=== PATIENT | female | born 1985 | race African-American/Black ===

== ENCOUNTER 2019-02-23 22:31 | Emergency (ER) | payer MEDICAID ==
[~2019-02-23] VITALS: Ht 170.2 cm; Wt 99.3 kg
[~2019-02-23 22:31] MED LIST: DIURETIC PO
[2019-02-23 22:33] VITALS: BP 156/108
[2019-02-23] MEDS ORDERED: KETOROLAC 30 MG/1 ML IM ONE (23:00)
[2019-02-23] MEDS ORDERED: METHOCARBAMOL 750 MG TABLET PO ONE (23:00)
[2019-02-23] MEDS ORDERED: METHOCARBAMOL 750 MG TABLET ONE (23:06)
[2019-02-23] MEDS ORDERED: KETOROLAC 30 MG/1 ML ONE (23:06)
--- NOTE | 2019-02-23 23:11 | NUR ---
PT HERE FOR BACK PAIN AFTER WORKING TO HARD. PT REPORTS STRAIN LIKE PAIN TO UPPER RIGHT BACK.
[2019-02-24 00:18] LABS: CULTURE INDICATED? NO; HCG UR SG 1.028 (1.003-1.030); MICROSCOPIC NOT IND
--- NOTE | 2019-02-24 00:56 | NUR ---
Patient/Caregiver given discharge instructions and they have confirmed that they understand the instructions. Patient ambulatory with steady gait.
== END 2019-02-24 01:01 | disposition home or self-care (01) ==
LOC: ED 23:12
DX: S39.012A Strain of muscle, fascia and tendon of lower back, initial encounter (principal); I10 Essential (primary) hypertension; X58.XXXA Exposure to other specified factors, initial encounter; Y93.89 Activity, other specified; Y92.89 Other specified places as the place of occurrence of the external cause; Y99.8 Other external cause status
CPT/HCPCS: 81003; 81025; 93005; 96372; 99284; J1885

== ENCOUNTER 2019-03-31 20:57 | Emergency (ER) | payer MEDICAID ==
[~2019-03-31] VITALS: Ht 170.2 cm; Wt 97.0 kg
[2019-03-31 21:15] VITALS: BP 176/113
== END 2019-03-31 22:31 | disposition home or self-care (01) ==
LOC: ED 22:25
DX: K11.21 Acute sialoadenitis (principal); F17.200 Nicotine dependence, unspecified, uncomplicated; I10 Essential (primary) hypertension
CPT/HCPCS: 99283

== ENCOUNTER 2019-04-01 22:21 | Emergency (ER) | payer MEDICAID ==
[~2019-04-01] VITALS: Ht 170.2 cm; Wt 98.0 kg
[2019-04-01 23:46] VITALS: BP 127/81
== END 2019-04-01 23:49 | disposition home or self-care (01) ==
LOC: ED 22:37
DX: K11.21 Acute sialoadenitis (principal); I10 Essential (primary) hypertension; Z72.9 Problem related to lifestyle, unspecified; R51 Headache
CPT/HCPCS: 99282

== ENCOUNTER 2019-07-21 18:43 | Emergency (ER) | payer MEDICAID ==
[~2019-07-21] VITALS: Ht 170.2 cm; Wt 101.3 kg
[2019-07-21 20:24] LABS: MICROSCOPIC NOT IND
[2019-07-21 20:28] LABS: BASOPHILS # (AUTO) 0.01 x10^3/uL (0-0.1); BASOPHILS % (AUTO) 0 % (0-1); EOSINOPHILS # (AUTO) 0.06 x10^3/uL (0-0.4); EOSINOPHILS % (AUTO) 1 % (1-7); LYMPHOCYTES # (AUTO) 1.81 x10^3/uL (1-3.4); LYMPHOCYTES % (AUTO) 35 % (22-44); MD NO; MEAN CORPUSCULAR HEMOGLOBIN 35.5 pg (27.0-34.8); MEAN CORPUSCULAR HGB CONC 33.6 g/dL (32.4-35.8); MEAN CORPUSCULAR VOLUME 105.6 fL (80-100); MEAN PLATELET VOLUME 9.6 fL (7.4-10.4); MONOCYTES % (AUTO) 8 % (2-9); NEUTROPHILS # (AUTO) 2.83 x10^3/uL (1.8-6.8); NEUTROPHILS % (AUTO) 55 % (42-75); PLATELET COUNT 164 x10^3/uL (130-400); RED BLOOD COUNT 4.04 x10^6/uL (3.82-5.3)
[2019-07-21 20:33] LABS: CULTURE INDICATED? NO
[2019-07-21 20:35] LABS: ALANINE AMINOTRANSFERASE 30 U/L (12-78); ALBUMIN 3.4 g/dL (3.4-5.0); ANION GAP 9 mmol/L (5-15); CALCIUM 8.7 mg/dL (8.5-10.1); CHLORIDE 108 mmol/L (98-107)
[2019-07-21 20:40] LABS: ALKALINE PHOSPHATASE 73 U/L (45-117); BILIRUBIN,TOTAL 0.5 mg/dL (0.2-1.0); CREATINE KINASE, TOTAL 118 U/L (26-192); CREATININE 0.86 mg/dL (0.55-1.02); TOTAL PROTEIN 7.8 g/dL (6.4-8.2)
[2019-07-21 20:48] VITALS: BP 148/86
== END 2019-07-21 21:31 | disposition home or self-care (01) ==
LOC: ED 21:25
DX: I10 Essential (primary) hypertension (principal); F17.210 Nicotine dependence, cigarettes, uncomplicated
CPT/HCPCS: 36415; 80053; 81003; 82550; 84703; 85025; 93005; 99284

== ENCOUNTER 2020-03-10 20:49 | Emergency (ER) | payer MEDICAID ==
[~2020-03-10] VITALS: Ht 170.2 cm; Wt 113.1 kg
[2020-03-10 21:47] LABS: HCG UR SG 1.028 (1.003-1.030); MICROSCOPIC NOT IND
--- NOTE | 2020-03-10 22:00 | NUR ---
R[employer] INSULATOR: PT TO RM FROM LOBBY
[2020-03-10 22:26] LABS: BASOPHILS # (AUTO) 0.03 x10^3/uL (0-0.1); BASOPHILS % (AUTO) 1 % (0-1); EOSINOPHILS # (AUTO) 0.07 x10^3/uL (0-0.4); EOSINOPHILS % (AUTO) 1 % (1-7); LYMPHOCYTES # (AUTO) 1.97 x10^3/uL (1-3.4); LYMPHOCYTES % (AUTO) 35 % (22-44); MD NO; MEAN CORPUSCULAR HEMOGLOBIN 35.2 pg (27.0-34.8); MEAN CORPUSCULAR VOLUME 103.6 fL (80-100); MEAN PLATELET VOLUME 9.1 fL (7.4-10.4); MONOCYTES # (AUTO) 0.42 x10^3/uL (0.2-0.8); MONOCYTES % (AUTO) 7 % (2-9); NEUTROPHILS # (AUTO) 3.15 x10^3/uL (1.8-6.8); NEUTROPHILS % (AUTO) 56 % (42-75); PLATELET COUNT 206 x10^3/uL (130-400); RED BLOOD COUNT 3.64 x10^6/uL (3.82-5.3); RED CELL DISTRIBUTION WIDTH 13.2 % (9.6-15.2)
--- NOTE | 2020-03-10 22:32 | NUR ---
PT TAKEN FOR ULTRASOUND.
[2020-03-10 22:37] LABS: ALBUMIN 2.9 g/dL (3.4-5.0); ANION GAP 7 mmol/L (5-15); CALCIUM 8.3 mg/dL (8.5-10.1); CHLORIDE 106 mmol/L (98-107); CREATININE 0.91 mg/dL (0.55-1.02)
[2020-03-10 22:59] VITALS: BP 153/92
== END 2020-03-10 23:36 | disposition home or self-care (01) ==
LOC: ED 21:00
DX: O26.891 Other specified pregnancy related conditions, first trimester (principal); N83.292 Other ovarian cyst, left side; L81.9 Disorder of pigmentation, unspecified; R11.2 Nausea with vomiting, unspecified; R10.2 Pelvic and perineal pain; I10 Essential (primary) hypertension; Z3A.08 8 weeks gestation of pregnancy
CPT/HCPCS: 36415; 76856; 80048; 81003; 81025; 82040; 84702; 85025; 99284

== ENCOUNTER 2020-04-03 18:58 | Emergency (ER) | payer MEDICAID ==
[~2020-04-03] VITALS: Ht 170.2 cm; Wt 113.8 kg
[2020-04-03 19:28] LABS: BASOPHILS # (AUTO) 0.05 x10^3/uL (0-0.1); BASOPHILS % (AUTO) 1 % (0-1); EOSINOPHILS # (AUTO) 0.04 x10^3/uL (0-0.4); EOSINOPHILS % (AUTO) 1 % (1-7); LYMPHOCYTES # (AUTO) 1.64 x10^3/uL (1-3.4); LYMPHOCYTES % (AUTO) 28 % (22-44); MD NO; MEAN CORPUSCULAR HEMOGLOBIN 34.8 pg (27.0-34.8); MEAN CORPUSCULAR HGB CONC 33.7 g/dL (32.4-35.8); MEAN CORPUSCULAR VOLUME 103.2 fL (80-100); MONOCYTES % (AUTO) 5 % (2-9); NEUTROPHILS # (AUTO) 3.78 x10^3/uL (1.8-6.8); NEUTROPHILS % (AUTO) 65 % (42-75); PLATELET COUNT 194 x10^3/uL (130-400); RED BLOOD COUNT 3.66 x10^6/uL (3.82-5.3); RED CELL DISTRIBUTION WIDTH 12.8 % (9.6-15.2)
--- NOTE | 2020-04-03 20:18 | NUR ---
PT BP 183/121 ON EXAM, PT STATES SHE NORMALLY HAS HIGH BP'S BUT HAS NEVER BEEN FORMALLY DX WITH HTN.
[2020-04-03] MEDS ORDERED: LABETALOL 100 MG TABLET PO ONE (21:35)
[2020-04-03 21:49] VITALS: BP 188/112
[2020-04-03 21:56] LABS: MICROSCOPIC INDICATED
[2020-04-03 22:00] LABS: ALBUMIN 3.1 g/dL (3.4-5.0); ANION GAP 7 mmol/L (5-15); CALCIUM 8.5 mg/dL (8.5-10.1); CHLORIDE 109 mmol/L (98-107)
== END 2020-04-03 22:19 | disposition home or self-care (01) ==
LOC: ED 21:09
DX: O26.891 Other specified pregnancy related conditions, first trimester (principal); M54.5 Low back pain; N93.9 Abnormal uterine and vaginal bleeding, unspecified; I10 Essential (primary) hypertension; Z87.891 Personal history of nicotine dependence; Z3A.08 8 weeks gestation of pregnancy
CPT/HCPCS: 36415; 76801; 80048; 81001; 82040; 84702; 85025; 86901; 87086; 99284

== ENCOUNTER 2020-10-15 23:21 | Emergency (ER) | payer MEDICAID ==
[~2020-10-15] VITALS: Ht 170.2 cm; Wt 119.7 kg
[2020-10-15 23:29] VITALS: BP 146/83
--- NOTE | 2020-10-15 23:49 | NUR ---
PT REPORT A LUMP ON THE LEFT SIDE OF HER CHEST PT ALSO C/O A RASH UNDER HER LEFT BREAST THAT ITCHES PT IS 36 WEEKS
== END 2020-10-16 01:04 | disposition home or self-care (01) ==
LOC: ED 10-16 00:45
DX: O26.893 Other specified pregnancy related conditions, third trimester (principal); B35.4 Tinea corporis; N63.0 Unspecified lump in unspecified breast; I10 Essential (primary) hypertension; Z3A.36 36 weeks gestation of pregnancy; Z87.891 Personal history of nicotine dependence
CPT/HCPCS: 99282

== ENCOUNTER 2021-02-27 08:54 | Emergency (ER) | payer MEDICAID ==
[~2021-02-27] VITALS: Ht 170.2 cm; Wt 109.5 kg
--- NOTE | 2021-02-27 09:28 | NUR ---
"SINCE LAST THURSDAY, I'VE BEEN HAVING SORE CHEST, COUGHING, SORE THROAT, MUSCLE ACHES AND IN MY RIGHT EYE THERE'S WHITE PUS COMING OUT OF IT." NO COVID VACCINE. WET COUGH NOTED VSS PLACED IN DROPLET PLUS PRECAUTIONS
--- NOTE | 2021-02-27 10:38 | NUR ---
SWABBED FOR COVID PER GUIDELINES. SAMPLE WAKED TO LAB
[2021-02-27 10:46] VITALS: BP 155/63
== END 2021-02-27 10:48 | disposition home or self-care (01) ==
LOC: ED 10:45
DX: J02.8 Acute pharyngitis due to other specified organisms (principal); R07.81 Pleurodynia; Z20.822 Contact with and (suspected) exposure to COVID-19; I10 Essential (primary) hypertension; R94.31 Abnormal electrocardiogram [ECG] [EKG]
CPT/HCPCS: 93005; 99284; U0003; U0005

== ENCOUNTER 2021-03-02 01:04 | Emergency (ER) | payer MEDICAID ==
[~2021-03-02] VITALS: Ht 170.2 cm; Wt 111.7 kg
[2021-03-02] MEDS ORDERED: DEXAMETHASONE 4 MG TABLET PO ONE (02:00)
[2021-03-02] MEDS ORDERED: DEXAMETHASONE 4 MG TABLET ONE (02:02)
--- NOTE | 2021-03-02 02:07 | NUR ---
PT PROVIDED W/ WATER AND CRACKERS PER PT REQUEST. AWAITING STREP RESULTS.
[2021-03-02 03:26] VITALS: BP 171/114
== END 2021-03-02 03:52 | disposition home or self-care (01) ==
LOC: ED 02:00
DX: J20.8 Acute bronchitis due to other specified organisms (principal); J02.8 Acute pharyngitis due to other specified organisms; H10.021 Other mucopurulent conjunctivitis, right eye; B97.89 Other viral agents as the cause of diseases classified elsewhere; I10 Essential (primary) hypertension
CPT/HCPCS: 71045; 87081; 87880; 99284